=== PATIENT | female | born 1980 | race Caucasian/White ===

== ENCOUNTER 2020-12-24 16:36 | Emergency (ER) | payer OTHER ==
[2020-12-24 18:26] LABS: HEMOGLOBIN 15.7 gm/dl (12.3-15.3); RED BLOOD COUNT 4.87 M/UL (4.00-5.10); WHITE BLOOD COUNT 18.2 K/UL (4.5-11.0)
[2020-12-24 18:37] LABS: BUN/CREATININE RATIO 13 (0-10)
[2020-12-24] MEDS ORDERED: ONDANSETRON ODT4 MG SL (22:12)
[2020-12-24] MEDS ORDERED: OMNICEF 300 MG300 MG PO (22:12)
[2020-12-24] MEDS ORDERED: PHENERGAN 25 MG25 M1 PO (22:12)
== END 2020-12-24 20:58 | disposition home or self-care (01) ==
LOC: ER1 16:36
PROVIDERS: Physician Assistant
DX: N39.0 Urinary tract infection, site not specified (principal); R19.7 Diarrhea, unspecified; R11.2 Nausea with vomiting, unspecified; Z20.822 Contact with and (suspected) exposure to COVID-19
CPT/HCPCS: 0240U; 71045; 80053; 81001; 83605; 83690; 85025; 87040; 87077; 87086; 87186; 96374; 96375; 99284; C9113; J0696; J1200; J2405; J2550; J2765; J7030; Q9967

== ENCOUNTER 2021-02-05 22:13 | Emergency (ER) | payer OTHER ==
[~2021-02-05 22:13] MED LIST: OMNICEF 300 MG300 MG PO; ONDANSETRON ODT4 MG SL; PHENERGAN 25 MG25 M1 PO
[2021-02-06 00:06] LABS: HEMOGLOBIN 13.9 gm/dl (12.3-15.3); RED BLOOD COUNT 4.54 M/UL (4.00-5.10)
[2021-02-06 00:21] LABS: BUN/CREATININE RATIO 5 (0-10)
== END 2021-02-06 01:00 | disposition home or self-care (01) ==
LOC: ER1 22:13
PROVIDERS: Physician Assistant
DX: S06.9X9A Unspecified intracranial injury with loss of consciousness of unspecified duration, initial encounter (principal); S00.01XA Abrasion of scalp, initial encounter; Z90.710 Acquired absence of both cervix and uterus; Z79.899 Other long term (current) drug therapy; F17.210 Nicotine dependence, cigarettes, uncomplicated; W22.8XXA Striking against or struck by other objects, initial encounter
CPT/HCPCS: 70450; 71045; 72125; 80053; 80156; 85025; 99284; G0480